=== PATIENT | female | born 1975 | race African-American/Black ===

== ENCOUNTER 2025-01-30 23:35 | Emergency (ER) | payer MEDICAID ==
[~2025-01-30] VITALS: Ht 160 cm; Wt 114.0 kg
[2025-01-30 23:38] VITALS: O2SAT 96
[2025-01-31] MEDS ORDERED: DIPHENHYDRAMINE 50MG/ML VIAL IV ONE
[2025-01-31] MEDS ORDERED: METHYLPREDNISOLONE SOD SUCC 125MG/2ML (ACT-O-VIAL) IV ONE
[2025-01-31] MEDS ORDERED: FAMOTIDINE 20MG/2ML VIAL IV ONE
[2025-01-31 00:33] LABS: BASOPHILS % 0.6 % (0.0-2.0); HEMATOCRIT. 44.1 % (36.0-48.0); HEMOGLOBIN. 15.1 g/dL (12.0-16.0); LYMPHOCYTES % 31.3 % (20.0-50.0); MEAN CORPUSCULAR HEMOGLOBIN 28.1 pg (28.0-32.0); MEAN CORPUSCULAR HGB CONC 34.2 g/dL (31.0-37.0); MEAN CORPUSCULAR VOLUME 82.2 fL (81.0-99.0); MEAN PLATELET VOLUME 7.6 fl (7.4-10.4); MONOCYTES % 8.6 % (2.0-8.0); NEUTROPHILS % 57.5 % (40.0-76.0); PLATELET 361 x1000/uL (130-400); RED BLOOD CELL COUNT 5.37 mill/uL (4.2-5.4); RED CELL DISTRIBUTION WIDTH 14.6 % (11.6-14.6); WHITE BLOOD COUNT 9.1 x1000/uL (4.5-11.0)
[2025-01-31 00:44] LABS: CHLORIDE 104 mEq/L (98-107)
[2025-01-31 01:20] LABS: ALANINE AMINOTRANSFERASE 37 IU/L (10-49); ALBUMIN 4.5 g/dL (3.2-4.8); ASPARTATE AMINOTRANSFERASE 35 IU/L (<34); BILIRUBIN DIRECT < 0.1 mg/dL (<=3.0); BILIRUBIN TOTAL 0.3 mg/dL (0.1-1.0); CALCIUM 9.1 mg/dL (8.7-10.4); CARBON DIOXIDE 26 mEq/L (21-32); CREATININE 0.7 mg/dL (0.6-1.0); GLUCOSE 121 mg/dL (70-105); PROTEIN TOTAL 7.8 g/dL (6.0-8.3); SODIUM 139 mEq/L (136-145); UREA NITROGEN BLOOD 10 mg/dL (9-23)
[2025-01-31 01:30] LABS: HCG SCREEN NEGATIVE
[2025-01-31 01:38] LABS: TROPONIN I HIGH SENSITIVITY < 4 ng/L (3.0-34)
[2025-01-31 01:41] LABS: POTASSIUM 2.8 mEq/L (3.5-5.1)
[2025-01-31] MEDS: FAMOTIDINE 20MG/2ML VIAL IV NR (01:44)
[2025-01-31] MEDS: METHYLPREDNISOLONE SOD SUCC 125MG/2ML (ACT-O-VIAL) IV NR (01:45)
[2025-01-31] MEDS: DIPHENHYDRAMINE 50MG/ML VIAL IV NR (01:45)
[2025-01-31] MEDS: ONDANSETRON HCL 4MG/2ML INJ IV ONE (01:56)
[2025-01-31] MEDS: POTASSIUM CHLORIDE 20MEQ/PACKET PO ONE (01:56)
[2025-01-31] MEDS: SODIUM CHLORIDE 0.9% 1,000 ML IV ONE (01:57)
[2025-01-31 03:12] VITALS: TEMP 36.4
[2025-01-31] MEDS: IOHEXOL-300 100 ML BOTTLE ONE (04:30)
[2025-01-31] MEDS ORDERED: ONDA-239 PO (05:44)
[2025-01-31] MEDS ORDERED: POTA20LI50 MT (05:47)
[2025-01-31 06:03] VITALS: BP 119/60; PULSE 77; RESP 18; O2SAT 95
[2025-01-31] MEDS ORDERED: AMLO5TAB88 MT (07:37)
== END 2025-01-31 06:13 | disposition home or self-care (01) ==
LOC: ER 23:35
DX: T78.3XXA Angioneurotic edema, initial encounter (principal); E87.6 Hypokalemia; J84.10 Pulmonary fibrosis, unspecified; R59.0 Localized enlarged lymph nodes; I10 Essential (primary) hypertension; F17.200 Nicotine dependence, unspecified, uncomplicated; Z79.899 Other long term (current) drug therapy; Y92.89 Other specified places as the place of occurrence of the external cause
CPT/HCPCS: 80076; 80048; 85025; 84484; 36415; 71045; 93005; 96361; 96374; 96375; 99285; 84703; 83605; 87040; 84145; 70487; 70491; Q9967; J1200; J3490; J2919; J2405; J7030; Z7610 ×2